=== PATIENT | male | born 1970 | race Caucasian/White ===

== ENCOUNTER 2018-10-02 13:24 | Emergency (ER) | payer MEDICAID ==
[~2018-10-02] VITALS: Ht 170.2 cm; Wt 63.5 kg
--- NOTE | 2018-10-02 13:40 | NUR ---
1st contact with patient- AOx4, respiration:easy, patient is c/o chronic rib pains & unable to pee well for 2 days, pending MD evaluation, endorsed to KEVIN Duncan. 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
--- NOTE | 2018-10-02 14:30 | NUR ---
[address] [facility] in ED - 10/02/18 at 1523 by HUSSEIN 1st contact with patient- AOx4, +urinary retention & chronic rib pains. CT scan is done per KEVIN Duncan, pending urine , blood tests' results & disposition@this time.
--- NOTE | 2018-10-02 14:30 | NUR ---
Hands off report received from KEVIN Duncan. CT scan is done. Urinary catheterization was unsuccessful, pending urine specimen@this time.
--- NOTE | 2018-10-02 14:47 | NUR ---
Patient is in the bathroom attempting to pee.
--- NOTE | 2018-10-02 14:53 | NUR ---
Patient said that he was unable to provide urine by urinal, MD notified.
[2018-10-02] MEDS: MAGNESIUM CITRATE 296 ML BOTTLE PO ONE (15:38)
[2018-10-02] MEDS: ONDANSETRON 4 MG/2 ML VIAL IM ONE (15:38)
[2018-10-02] MEDS: HYDROMORPHONE 1 MG/1 ML DISP.SYRIN IM ONE (15:38)
[2018-10-02] MEDS: MAGNESIUM HYDROXIDE 30 ML LIQUID UDC PO ONE (15:38)
[2018-10-02] MEDS ORDERED: ONDANSETRON 4 MG/2 ML VIAL ONE (15:39)
[2018-10-02] MEDS ORDERED: HYDROMORPHONE 1 MG/1 ML DISP.SYRIN ONE (15:39)
[2018-10-02] MEDS ORDERED: MAGNESIUM HYDROXIDE 30 ML LIQUID UDC ONE (15:40)
[2018-10-02] MEDS ORDERED: MAGNESIUM CITRATE 296 ML BOTTLE ONE (15:40)
--- NOTE | 2018-10-02 15:40 | NUR ---
Patient discharged to home in stable conditon & brisk steady gait. Written and verbal after care instructions given to patient. Patient verbalizes understanding & compliance of instructions to follow up with the urologist- Dr Dorsey.
== END 2018-10-02 15:41 | disposition home or self-care (01) ==
LOC: ER 13:24
DX: N41.9 Inflammatory disease of prostate, unspecified (principal); K59.00 Constipation, unspecified; R06.02 Shortness of breath
CPT/HCPCS: 71250; 74176; 96372 ×2; 99284; J1170; J2405; A4663